=== PATIENT | female | born 1940 | race Caucasian/White ===

== ENCOUNTER 2016-10-29 10:47 | Inpatient (IN) | payer OTHER, MEDICAID ==
--- NOTE | 2016-10-29 11:59 | DR.H&P ---
H&P - History & Physical for Day of: H&P Date: 10/29/16 - Chief Complaint Chief Complaint: C DIFF - Allergies Allergies/Adverse Reactions: Allergies Allergy/AdvReac Type Severity Reaction Status Date / Time butalbital Allergy Verified 10/29/16 11:56 codeine Allergy Verified 10/29/16 11:56 meclizine Allergy Verified 10/29/16 11:56 sulfamethoxazole Allergy Verified 10/29/16 11:56 [From Bactrim] trimethoprim [From Bactrim] Allergy Verified 10/29/16 11:56 - History of Present Illness History of Present Illness: The patient is a 76-year-old white female who is a resident of [facility]. Patient on 10/28/2016 was noted to have a WBC of 18,000. Patient was also noted to have a urinary tract infection and mildly dehydrated. Patient was started on Levaquin. I and given 1000 mL of normal saline. Subsequently patient developed diarrhea and after third episode stool was cemented in his noted positive for Clostridium difficile. Patient will be admitted for further follow-up and evaluation including laboratory workup, IV hydration and IV Flagyl. - Past Medical History Past Medical History: Anxiety, Dementia, Depression, GERD, Hypertension - Past Surgical History Surgical History: Unknown - Social History Does patient currently use any type of tobacco product: No Have you used tobacco products in the last 12 months: No Type of Tobacco Use: None Does any household member use tobacco: No Alcohol Use: None Drug Use: None - Review of Systems Constitutional: Weakness Eyes: No Symptoms Reported ENT: No Symptoms Reported Respiratory: No Symptoms Reported Cardiovascular: No Symptoms Reported Gastrointestinal: Diarrhea Genitourinary: See HPI Musculoskeletal: No Symptoms Reported Skin: No Symptoms Reported Neurological: No Symptoms Reported Oriented: Normal Eyes: Normal Ear: Normal Nose: Normal Throat: Normal Respiratory: Clear Throughout Cardiovascular: Normal : Other (Current UTI) Auscultation: Bowel Sounds: Increased Palpation: Normal Tenderness: Normal Skin: Normal Musculoskeletal: Normal Psychiatric: Normal Mood Description: Calm Affect: Quiet Speech Pattern: Clear - Assessment/Plan (1) C. difficile diarrhea Status: Acute Plan: IV HYDRATION, IV FLAGYL, LABS (2) Leukocytosis Qualifiers: Leukocytosis type: L Status: Acute Plan: IV HYDRATION, IV FLAGYL AND ROCEPHIN, LABS (3) UTI (urinary tract infection) Qualifiers: Urinary tract infection type: U Hematuria presence: H Indwelling urinary catheter type: I Encounter type: E Status: Acute Plan: LABS, UA, UA CX, IV ROCEPHIN
[2016-10-29] MEDS: NS 1000 ML 1,000 ML IV SCH (16:21)
[2016-10-29] MEDS ORDERED: BUTT CREAM (COMPOUND) ONE (17:00)
[2016-10-29] MEDS: ROCEPHIN VIAL 1 GM 1 GM in NS 50 ML IV + SPIKE MINIBAG* 50 ML IV SCH (17:10)
[2016-10-29] MEDS: FLAGYL IV PREMIX 500 MG BAG 500 MG/100 ML BAG IV SCH ×2 (17:10→21:43)
[2016-10-29 17:21] LABS: BILIRUBIN,URINE 1+ (NEGATIVE); BLOOD/HEMOGLOBIN,URINE 2+ (NEGATIVE); GLUCOSE, URINE NEGATIVE (NEGATIVE); KETONES,URINE 1+ (NEGATIVE); LEUKOCYTE ESTERASE ,URINE 3+ (NEGATIVE); NITRITES,URINE POSITIVE (NEGATIVE); PROTEIN,URINE 2+ (NEGATIVE); UROBILINOGEN,URINE 2+ (NORMAL)
[2016-10-29 17:27] LABS: APPEARANCE,URINE HAZY (CLEAR); COLOR,URINE YELLOW (YELLOW)
[2016-10-29 17:28] LABS: BACTERIA,URINE 2+ /HPF (NEGATIVE); SQUAMOUS EPITHELIAL CELL,UR RARE /HPF (NEGATIVE)
--- NOTE | 2016-10-29 17:48 | RAD ---
HISTORY: Leukocytosis. Study: Portable chest. Comparison: None. Findings: The trachea is midline. The cardiac silhouette is unremarkable. The lungs are clear without focal infiltrate or effusion. The bony thorax is unremarkable. IMPRESSION: 1. No acute cardiopulmonary disease. Reported By:
[2016-10-29 18:11] LABS: BASOPHILS % (AUTO) 0.2 % (0.2-1.0); EOSINOPHILS % (AUTO) 0.1 % (0.9-2.9); HEMATOCRIT 28.4 % (36.0-47.0); HEMOGLOBIN 9.8 g/dL (12.0-16.0); LYMPHOCYTES # (AUTO) 0.9 X10^3/uL (1.3-2.9); LYMPHOCYTES % (AUTO) 7.6 % (21.0-51.0); MEAN CORPUSCULAR HEMOGLOBIN 28.8 pg (27.0-34.0); MEAN CORPUSCULAR HGB CONC 34.6 g/dL (33.0-35.0); MEAN CORPUSCULAR VOLUME 83.3 fL (80.0-100.0); MEAN PLATELET VOLUME 10.6 fL (7.4-11.0); MONOCYTES # (AUTO) 1.1 x10^3/uL (0.3-0.8); MONOCYTES % (AUTO) 9.8 % (0.0-13.0); NEUTROPHILS # (AUTO) 9.5 x10^3/uL (2.2-4.8); NEUTROPHILS % (AUTO) 82.3 % (42.0-75.0); PLATELET COUNT 107 X10^3/uL (150.0-450.0); RED BLOOD COUNT 3.41 X10^6/uL (3.5-5.4); RED CELL DISTRIBUTION WIDTH 14.5 % (11.6-16.5); WHITE BLOOD COUNT 11.6 X10^3/uL (3.6-10.0)
[2016-10-29 18:17] LABS: CALCIUM 8.8 mg/dL (8.5-10.1); CARBON DIOXIDE 25.9 mmol/L (21-32); CREATININE 1.58 mg/dL (0.55-1.02)
[2016-10-29] MEDS ORDERED: BUTT CREAM (COMPOUND) TOP PRN (18:30)
[2016-10-29 18:46] LABS: BAND NEUTROPHILS % 5 % (0-10)
[2016-10-29 18:47] LABS: HYPOCHROMASIA SLIGHT
[2016-10-29 18:48] LABS: PLATELET MORPHOLOGY COMMENT NORMAL (NORMAL)
[2016-10-29 22:47] VITALS: BMI 28.7
[2016-10-30] MEDS: FLAGYL IV PREMIX 500 MG BAG 500 MG/100 ML BAG IV SCH ×3 (05:00→14:02)
[2016-10-30 05:16] LABS: BASOPHILS % (AUTO) 0.4 % (0.2-1.0); EOSINOPHILS % (AUTO) 0.2 % (0.9-2.9); HEMATOCRIT 27.4 % (36.0-47.0); HEMOGLOBIN 9.5 g/dL (12.0-16.0); LYMPHOCYTES % (AUTO) 9.2 % (21.0-51.0); MEAN CORPUSCULAR HEMOGLOBIN 29.3 pg (27.0-34.0); MEAN CORPUSCULAR HGB CONC 34.6 g/dL (33.0-35.0); MEAN CORPUSCULAR VOLUME 84.5 fL (80.0-100.0); MEAN PLATELET VOLUME 11.3 fL (7.4-11.0); MONOCYTES % (AUTO) 9.7 % (0.0-13.0); NEUTROPHILS # (AUTO) 8.4 x10^3/uL (2.2-4.8); NEUTROPHILS % (AUTO) 80.5 % (42.0-75.0); PLATELET COUNT 98 X10^3/uL (150.0-450.0); RED BLOOD COUNT 3.24 X10^6/uL (3.5-5.4); RED CELL DISTRIBUTION WIDTH 14.5 % (11.6-16.5); WHITE BLOOD COUNT 10.5 X10^3/uL (3.6-10.0)
[2016-10-30 05:21] LABS: ALBUMIN 2.1 g/dL (3.4-5.0); CALCIUM 8.5 mg/dL (8.5-10.1); CARBON DIOXIDE 25.3 mmol/L (21-32); CREATININE 1.22 mg/dL (0.55-1.02); TOTAL PROTEIN 5.9 g/dL (6.4-8.2)
[2016-10-30 05:45] LABS: BAND NEUTROPHILS % 15 % (0-10); HYPOCHROMASIA SLIGHT; PLATELET MORPHOLOGY COMMENT NORMAL (NORMAL)
[2016-10-30] MEDS: NS 1000 ML 1,000 ML IV SCH ×2 (09:04→13:08)
[2016-10-30] MEDS: ROCEPHIN VIAL 1 GM 1 GM in NS 50 ML IV + SPIKE MINIBAG* 50 ML IV SCH (09:06)
[2016-10-30] MEDS ORDERED: [UNRECOGNIZED DRUG - OTHER] TOP PRN (10:34)
[2016-10-30] MEDS ORDERED: LACTOBACILLUS PO SCH (10:45)
[2016-10-30] MEDS ORDERED: POTASSIUM CHLORIDE PO SCH (10:45)
[2016-10-30] MEDS ORDERED: ZOLOFT PO ONE (11:07)
[2016-10-30] MEDS: FLONASE NASAL SPRAY ENOSTRIL SCH ×2 (11:18→22:42)
[2016-10-30] MEDS: NORVASC TAB 10 MG PO SCH (11:18)
[2016-10-30] MEDS: GEODON PO SCH ×2 (11:18→22:37)
[2016-10-30] MEDS: PROTONIX TAB 40 MG PO SCH (11:19)
[2016-10-30] MEDS: NAMENDA TAB 10 MG PO SCH ×2 (11:19→22:36)
[2016-10-30] MEDS: ZOLOFT PO SCH (11:19)
[2016-10-30] MEDS ORDERED: DEPAKOTE D.R. TAB PO ONE ×2 (22:23→22:41)
[2016-10-30] MEDS: KLONOPIN TAB 0.5 MG PO SCH (22:35)
[2016-10-30] MEDS: FLAGYL TAB 500 MG PO SCH (22:36)
[2016-10-30] MEDS: DEPAKOTE D.R. TAB PO SCH (22:41)
[2016-10-30] MEDS: VANCOMYCIN HCL PO SCH (22:42)
[2016-10-31] MEDS: NS 1000 ML 1,000 ML IV SCH ×2 (03:31→16:40)
[2016-10-31] MEDS ORDERED: ZOLOFT PO ONE (09:14)
[2016-10-31] MEDS: ROCEPHIN VIAL 1 GM 1 GM in NS 50 ML IV + SPIKE MINIBAG* 50 ML IV SCH (10:20)
[2016-10-31] MEDS: VSL#3 PO SCH (10:21)
[2016-10-31] MEDS: MICRO K EXTEN CAP 10 MEQ PO SCH (10:21)
[2016-10-31] MEDS: NORVASC TAB 10 MG PO SCH (10:21)
[2016-10-31] MEDS: ZOLOFT PO SCH (10:21)
[2016-10-31] MEDS: PROTONIX TAB 40 MG PO SCH (10:21)
[2016-10-31] MEDS: NAMENDA TAB 10 MG PO SCH ×2 (10:22→21:14)
[2016-10-31] MEDS: GEODON PO SCH ×2 (10:22→21:13)
[2016-10-31] MEDS: VANCOMYCIN HCL PO SCH ×4 (10:26→21:13)
[2016-10-31] MEDS: FLONASE NASAL SPRAY ENOSTRIL SCH ×2 (10:26→21:16)
[2016-10-31] MEDS: FLAGYL TAB 500 MG PO SCH ×2 (14:32→21:14)
[2016-10-31] MEDS ORDERED: DEPAKOTE D.R. TAB PO ONE (21:09)
[2016-10-31] MEDS: KLONOPIN TAB 0.5 MG PO SCH (21:13)
[2016-10-31] MEDS: DEPAKOTE D.R. TAB PO SCH (21:15)
[2016-11-01] MEDS ORDERED: LANTISEPTIC ONE (02:50)
[2016-11-01] MEDS: LANTISEPTIC TOP PRN (04:21)
[2016-11-01] MEDS: FLAGYL TAB 500 MG PO SCH ×3 (05:51→21:13)
[2016-11-01] MEDS: NS 1000 ML 1,000 ML IV SCH ×2 (05:51→19:48)
[2016-11-01 06:11] LABS: BASOPHILS # (AUTO) 0.1 X10^3/uL (0.0-0.1); BASOPHILS % (AUTO) 0.7 % (0.2-1.0); EOSINOPHILS # (AUTO) 0.2 x10^3/uL (0.0-0.2); EOSINOPHILS % (AUTO) 2.4 % (0.9-2.9); LYMPHOCYTES # (AUTO) 1.3 X10^3/uL (1.3-2.9); LYMPHOCYTES % (AUTO) 14.6 % (21.0-51.0); MEAN CORPUSCULAR HEMOGLOBIN 29.2 pg (27.0-34.0); MEAN CORPUSCULAR HGB CONC 34.5 g/dL (33.0-35.0); MEAN CORPUSCULAR VOLUME 84.7 fL (80.0-100.0); MEAN PLATELET VOLUME 10.8 fL (7.4-11.0); MONOCYTES # (AUTO) 0.9 x10^3/uL (0.3-0.8); MONOCYTES % (AUTO) 9.9 % (0.0-13.0); NEUTROPHILS # (AUTO) 6.7 x10^3/uL (2.2-4.8); NEUTROPHILS % (AUTO) 72.4 % (42.0-75.0); PLATELET COUNT 146 X10^3/uL (150.0-450.0); RED BLOOD COUNT 3.42 X10^6/uL (3.5-5.4); RED CELL DISTRIBUTION WIDTH 15.3 % (11.6-16.5); WHITE BLOOD COUNT 9.2 X10^3/uL (3.6-10.0)
[2016-11-01 06:27] LABS: ALANINE AMINOTRANSFERASE 29 Units/L (12-78); ALBUMIN 1.8 g/dL (3.4-5.0); ALKALINE PHOSPHATASE 85 Units/L (46-116); ASPARTATE AMINO TRANSFERASE 13 Units/L (15-37); BLOOD UREA NITROGEN 30 mg/dL (7-18); CALCIUM 8.3 mg/dL (8.5-10.1); CARBON DIOXIDE 24.1 mmol/L (21-32); COR CA(FOR HYPOALB) 10.1 mg/dL (8.5-10.1); COR NA(FOR HYPERGLY) 149 mmol/L (136-145); CREATININE 0.88 mg/dL (0.55-1.02); GLUCOSE 118 mg/dL (65-99); SODIUM 149 mmol/L (136-145); TOTAL PROTEIN 5.4 g/dL (6.4-8.2); eGFR BLACK RACES > 60 (>60); eGFR NON BLACK RACES > 60 (>60)
[2016-11-01 06:32] LABS: CHLORIDE 117 mmol/L (98-107)
[2016-11-01 08:09] LABS: BAND NEUTROPHILS % 3 % (0-10); PLATELET MORPHOLOGY COMMENT NORMAL (NORMAL)
[2016-11-01] MEDS ORDERED: ZOLOFT PO ONE (08:51)
[2016-11-01] MEDS: PROTONIX TAB 40 MG PO SCH (09:24)
[2016-11-01] MEDS: NAMENDA TAB 10 MG PO SCH ×2 (09:24→21:16)
[2016-11-01] MEDS: NORVASC TAB 10 MG PO SCH (09:24)
[2016-11-01] MEDS: ZOLOFT PO SCH (09:24)
[2016-11-01] MEDS: MICRO K EXTEN CAP 10 MEQ PO SCH (09:24)
[2016-11-01] MEDS: GEODON PO SCH ×2 (09:25→21:18)
[2016-11-01] MEDS: FLONASE NASAL SPRAY ENOSTRIL SCH ×2 (09:25→21:22)
[2016-11-01] MEDS: ROCEPHIN VIAL 1 GM 1 GM in NS 50 ML IV + SPIKE MINIBAG* 50 ML IV SCH (09:25)
[2016-11-01] MEDS: VANCOMYCIN HCL PO SCH ×4 (09:25→21:16)
[2016-11-01] MEDS: VSL#3 PO SCH (09:46)
[2016-11-01] MEDS ORDERED: DEPAKOTE D.R. TAB PO ONE (20:47)
[2016-11-01] MEDS: KLONOPIN TAB 0.5 MG PO SCH (21:16)
[2016-11-01] MEDS: DEPAKOTE D.R. TAB PO SCH (21:17)
[2016-11-02] MEDS: FLAGYL TAB 500 MG PO SCH ×3 (06:03→21:19)
[2016-11-02 06:21] LABS: ALANINE AMINOTRANSFERASE 23 Units/L (12-78); ALBUMIN 1.7 g/dL (3.4-5.0); ALKALINE PHOSPHATASE 74 Units/L (46-116); ASPARTATE AMINO TRANSFERASE 14 Units/L (15-37); BLOOD UREA NITROGEN 26 mg/dL (7-18); CALCIUM 7.8 mg/dL (8.5-10.1); COR CA(FOR HYPOALB) 9.6 mg/dL (8.5-10.1); CREATININE 0.82 mg/dL (0.55-1.02); GLUCOSE 104 mg/dL (65-99); SODIUM 149 mmol/L (136-145); eGFR BLACK RACES > 60 (>60); eGFR NON BLACK RACES > 60 (>60)
[2016-11-02 06:23] LABS: BASOPHILS % (AUTO) 0.4 % (0.2-1.0); EOSINOPHILS # (AUTO) 0.2 x10^3/uL (0.0-0.2); EOSINOPHILS % (AUTO) 2.1 % (0.9-2.9); HEMATOCRIT 28.2 % (36.0-47.0); HEMOGLOBIN 9.8 g/dL (12.0-16.0); LYMPHOCYTES # (AUTO) 1.7 X10^3/uL (1.3-2.9); LYMPHOCYTES % (AUTO) 16.2 % (21.0-51.0); MEAN CORPUSCULAR HEMOGLOBIN 29.6 pg (27.0-34.0); MEAN CORPUSCULAR HGB CONC 34.9 g/dL (33.0-35.0); MEAN PLATELET VOLUME 10.4 fL (7.4-11.0); MONOCYTES % (AUTO) 9.6 % (0.0-13.0); NEUTROPHILS # (AUTO) 7.5 x10^3/uL (2.2-4.8); NEUTROPHILS % (AUTO) 71.7 % (42.0-75.0); PLATELET COUNT 156 X10^3/uL (150.0-450.0); RED BLOOD COUNT 3.32 X10^6/uL (3.5-5.4); RED CELL DISTRIBUTION WIDTH 14.9 % (11.6-16.5); WHITE BLOOD COUNT 10.4 X10^3/uL (3.6-10.0)
[2016-11-02 06:52] LABS: CHLORIDE 116 mmol/L (98-107)
[2016-11-02 07:04] LABS: BAND NEUTROPHILS % 4 % (0-10)
[2016-11-02 07:05] LABS: PLATELET MORPHOLOGY COMMENT NORMAL (NORMAL)
[2016-11-02] MEDS ORDERED: ZOLOFT PO ONE (09:19)
[2016-11-02] MEDS: ZOLOFT PO SCH (09:47)
[2016-11-02] MEDS: ROCEPHIN VIAL 1 GM 1 GM in NS 50 ML IV + SPIKE MINIBAG* 50 ML IV SCH (09:47)
[2016-11-02] MEDS: VSL#3 PO SCH (09:47)
[2016-11-02] MEDS: VANCOMYCIN HCL PO SCH ×4 (09:47→20:17)
[2016-11-02] MEDS: MICRO K EXTEN CAP 10 MEQ PO SCH (09:48)
[2016-11-02] MEDS: NORVASC TAB 10 MG PO SCH (09:48)
[2016-11-02] MEDS: PROTONIX TAB 40 MG PO SCH (09:48)
[2016-11-02] MEDS: FLONASE NASAL SPRAY ENOSTRIL SCH ×2 (09:48→20:30)
[2016-11-02] MEDS: GEODON PO SCH ×2 (09:48→20:17)
[2016-11-02] MEDS: NAMENDA TAB 10 MG PO SCH ×2 (09:48→20:17)
[2016-11-02] MEDS ORDERED: NS 1/2 1000 ML IV 1,000 ML IV ONE ×2 (10:46→21:55)
[2016-11-02] MEDS: NS 1/2 1000 ML IV 1,000 ML IV SCH ×2 (10:51→22:02)
[2016-11-02] MEDS: INVANZ INJ 1 GM VIAL 1 GM in NS 50 ML IV + SPIKE MINIBAG* 50 ML IV SCH (10:51)
[2016-11-02] MEDS ORDERED: DEPAKOTE D.R. TAB PO ONE (19:52)
[2016-11-02] MEDS: DEPAKOTE D.R. TAB PO SCH (20:17)
[2016-11-02] MEDS: KLONOPIN TAB 0.5 MG PO SCH (20:17)
[2016-11-03] MEDS: FLAGYL TAB 500 MG PO SCH (05:05)
[2016-11-03 06:09] LABS: BASOPHILS # (AUTO) 0.1 X10^3/uL (0.0-0.1); BASOPHILS % (AUTO) 0.5 % (0.2-1.0); EOSINOPHILS # (AUTO) 0.2 x10^3/uL (0.0-0.2); EOSINOPHILS % (AUTO) 1.3 % (0.9-2.9); HEMATOCRIT 27.7 % (36.0-47.0); HEMOGLOBIN 9.5 g/dL (12.0-16.0); LYMPHOCYTES # (AUTO) 1.7 X10^3/uL (1.3-2.9); LYMPHOCYTES % (AUTO) 13.9 % (21.0-51.0); MEAN CORPUSCULAR HEMOGLOBIN 29.1 pg (27.0-34.0); MEAN CORPUSCULAR HGB CONC 34.2 g/dL (33.0-35.0); MEAN PLATELET VOLUME 10.3 fL (7.4-11.0); MONOCYTES # (AUTO) 0.9 x10^3/uL (0.3-0.8); MONOCYTES % (AUTO) 7.2 % (0.0-13.0); NEUTROPHILS # (AUTO) 9.7 x10^3/uL (2.2-4.8); NEUTROPHILS % (AUTO) 77.1 % (42.0-75.0); PLATELET COUNT 177 X10^3/uL (150.0-450.0); RED BLOOD COUNT 3.26 X10^6/uL (3.5-5.4); RED CELL DISTRIBUTION WIDTH 14.7 % (11.6-16.5); WHITE BLOOD COUNT 12.6 X10^3/uL (3.6-10.0)
[2016-11-03 06:27] LABS: ALANINE AMINOTRANSFERASE 22 Units/L (12-78); ALBUMIN 1.7 g/dL (3.4-5.0); ALKALINE PHOSPHATASE 73 Units/L (46-116); ASPARTATE AMINO TRANSFERASE 26 Units/L (15-37); BLOOD UREA NITROGEN 24 mg/dL (7-18); CALCIUM 7.7 mg/dL (8.5-10.1); CARBON DIOXIDE 24.8 mmol/L (21-32); CHLORIDE 114 mmol/L (98-107); COR CA(FOR HYPOALB) 9.5 mg/dL (8.5-10.1); COR NA(FOR HYPERGLY) 146 mmol/L (136-145); CREATININE 0.81 mg/dL (0.55-1.02); GLUCOSE 111 mg/dL (65-99); SODIUM 146 mmol/L (136-145); TOTAL PROTEIN 4.9 g/dL (6.4-8.2); eGFR BLACK RACES > 60 (>60); eGFR NON BLACK RACES > 60 (>60)
[2016-11-03 06:58] LABS: BAND NEUTROPHILS % 10 % (0-10); PLATELET MORPHOLOGY COMMENT NORMAL (NORMAL)
[2016-11-03] MEDS ORDERED: ZOLOFT PO ONE ×2 (08:36→08:49)
[2016-11-03] MEDS: NORVASC TAB 10 MG PO SCH (09:46)
[2016-11-03] MEDS: ZOLOFT PO SCH (09:46)
[2016-11-03] MEDS: VSL#3 PO SCH (09:46)
[2016-11-03] MEDS: INVANZ INJ 1 GM VIAL 1 GM in NS 50 ML IV + SPIKE MINIBAG* 50 ML IV SCH (09:47)
[2016-11-03] MEDS: NAMENDA TAB 10 MG PO SCH (09:47)
[2016-11-03] MEDS: GEODON PO SCH (09:47)
[2016-11-03] MEDS: MICRO K EXTEN CAP 10 MEQ PO SCH (09:47)
[2016-11-03] MEDS: VANCOMYCIN HCL PO SCH (09:47)
[2016-11-03] MEDS: PROTONIX TAB 40 MG PO SCH (09:47)
[2016-11-03] MEDS: FLONASE NASAL SPRAY ENOSTRIL SCH (09:48)
[2016-11-03] MEDS: LANTISEPTIC TOP PRN (10:02)
[2016-11-03] MEDS: NS 1/2 1000 ML IV 1,000 ML IV SCH (12:41)
[2016-11-03 12:43] VITALS: BP 140/80
--- NOTE | 2016-11-03 16:40 | PCM.PROG ---
Progress Note - Progress Note for Day of Date: 11/01/16 - Subjective Subjective: Patient is a 76yo female who was admitted with diagnosis of C-Diff, Leukocytosis and UTI. Patient states she is feeling a little better this am. Vital signs this am are 98.5, 75, 20, 93%, 123/60. Labs are within normal limits with the exception of RBC 3.42, Hgb 10.0, Hct 29.0, Plt Count 146 decreased a, Lymph% 14.6, Neut# 6.7, mono# 0.9, sodium 149, Potassium 3.4, Chloride 117, BUN 30, Glucose 118, Calcium 8.3, AST 13, Total Protein 5.4, Albumin 1.8, albumin/Globulin ratio 0.5. We will follow up in the am with repeat labs and continue her current treatment plan. - Past Medical Family Social History Past Med/Fam/Surg Hx: No changes since H&P Allergies: Allergies butalbital Allergy (Verified 10/29/16 11:56) codeine Allergy (Verified 10/29/16 11:56) meclizine Allergy (Verified 10/29/16 11:56) sulfamethoxazole [From Bactrim] Allergy (Verified 10/29/16 11:56) trimethoprim [From Bactrim] Allergy (Verified 10/29/16 11:56) - Review of Systems ROS: No change since H&P - Vital Signs and I&O's Vital Signs: 98.5, 75, 20, 93%, 123/60 Intake and Output: Intake & Output 11/01/16 11/02/16 11/03/16 11/04/16 11:59 11:59 11:59 11:59 Intake Total 1540 2556 2558 Output Total 0 Balance 1540 2556 2558 - Physical Exam Oriented: Normal Eyes: Normal Ear: Normal Nose: Normal Throat: Normal Respiratory: Normal Cardiovascular: Normal : Other (Current UTI) Auscultation: Bowel Sounds: Increased Palpation: Normal Tenderness: Normal Skin: Normal Musculoskeletal: Normal Psychiatric: Normal Mood Description: Calm Affect: Quiet Speech Pattern: Appropriate, Delayed - Laboratory and Diagnostics Result Diagrams: 11/03/16 03:25 11/03/16 03:25 Labs: Labs are within normal limits with the exception of RBC 3.42, Hgb 10.0, Hct 29.0 , Plt Count 146 decreased a, Lymph% 14.6, Neut# 6.7, mono# 0.9, sodium 149, Potassium 3.4, Chloride 117, BUN 30, Glucose 118, Calcium 8.3, AST 13, Total Protein 5.4, Albumin 1.8, albumin/Globulin ratio 0.5. - Plan (1) C. difficile diarrhea Status: Acute Plan: IV HYDRATION, IV FLAGYL, LABS (2) UTI (urinary tract infection) Status: Acute Qualifiers: Urinary tract infection type: U Hematuria presence: H Indwelling urinary catheter type: I Encounter type: E Plan: IV ROCEPHIN, continue to monitor
--- NOTE | 2016-11-03 16:42 | PCM.PROG ---
Progress Note - Progress Note for Day of Date: 11/02/16 - Subjective Subjective: Patient is a 76yo female who was admitted with diagnosis of C-Diff, Leukocytosis and UTI. Patient urine culture grew out Ecoli which is not sensitive to rocephin so we started her on invanz IV Daily. Vital signs this am are 99.0, 78, 20, 95%, 138/63. Labs are within normal limits with the exception of WBC 10.4 RBC 3.26, Hgb 9.8, Hct 28.2, Lymph% 16.2, Neut# 7.5, mono# 1.0, sodium 149, Chloride 116, BUN 26, Glucose 104, Calcium 7.8, AST 14, Total Protein 5.0, Albumin 1.7, albumin/Globulin ratio 0.5. we are also going to change her fluids to 1/2NS since her sodium and chloride are elevated. We will follow up in the am with repeat labs. - Past Medical Family Social History Past Med/Fam/Surg Hx: No changes since H&P Allergies: Allergies butalbital Allergy (Verified 10/29/16 11:56) codeine Allergy (Verified 10/29/16 11:56) meclizine Allergy (Verified 10/29/16 11:56) sulfamethoxazole [From Bactrim] Allergy (Verified 10/29/16 11:56) trimethoprim [From Bactrim] Allergy (Verified 10/29/16 11:56) - Review of Systems ROS: No change since H&P - Vital Signs and I&O's Vital Signs: Vital signs this am are 99.0, 78, 20, 95%, 138/63 Intake and Output: Intake & Output 11/01/16 11/02/16 11/03/16 11/04/16 11:59 11:59 11:59 11:59 Intake Total 1540 2556 2558 Output Total 0 Balance 1540 2556 2558 - Physical Exam Oriented: Normal Eyes: Normal Ear: Normal Nose: Normal Throat: Normal Respiratory: Normal Cardiovascular: Normal : Other (Current UTI) Auscultation: Bowel Sounds: Increased Tenderness: Normal Skin: Normal Musculoskeletal: Normal Psychiatric: Normal Mood Description: Calm Affect: Quiet Speech Pattern: Appropriate, Delayed - Laboratory and Diagnostics Result Diagrams: 11/03/16 03:25 11/03/16 03:25 Labs: Labs are within normal limits with the exception of WBC 10.4 RBC 3.26, Hgb 9.8, Hct 28.2, Lymph% 16.2, Neut# 7.5, mono# 1.0, sodium 149, Chloride 116, BUN 26, Glucose 104, Calcium 7.8, AST 14, Total Protein 5.0, Albumin 1.7, albumin/ Globulin ratio 0.5. - Plan (1) C. difficile diarrhea Status: Acute Plan: IV HYDRATION, IV FLAGYL, LABS (2) UTI (urinary tract infection) Status: Acute Qualifiers: Urinary tract infection type: U Hematuria presence: H Indwelling urinary catheter type: I Encounter type: E Plan: IV invanz, continue to monitor
== END 2016-11-03 12:35 | DRG 372 ==
LOC: OBS 10:47 → MED/SURG 11:29
PROVIDERS: ADMIT Internal Medicine; ATTEND Internal Medicine
DX: A04.7 Enterocolitis due to Clostridium difficile (principal); N39.0 Urinary tract infection, site not specified; E86.0 Dehydration; K21.9 Gastro-esophageal reflux disease without esophagitis; I10 Essential (primary) hypertension; F41.8 Other specified anxiety disorders; D72.828 Other elevated white blood cell count; R53.1 Weakness; B96.29 Other Escherichia coli [E. coli] as the cause of diseases classified elsewhere; R73.09 Other abnormal glucose
CPT/HCPCS: 36415; 71010; 80048; 80053; 81001; 85025; 87040; 87086; 87088; 87186; 87493; 94760; A4216; A4222; S0030; J0696; J1335